=== PATIENT | female | born 1995 | race Caucasian/White ===

== ENCOUNTER → 2020-04-30 01:46 | Outpatient (CLI) | payer OTHER, SELFPAY ==
[2020-05-01 08:28] LABS: SARS-CoV-2 RNA PCR Negative
== END ==
PROVIDERS: PCP Family Medicine; Visit Provider Otolaryngology
DX: Z01.812 Encounter for preprocedural laboratory examination (principal); Z20.822 Contact with and (suspected) exposure to COVID-19
CPT/HCPCS: C9803; U0003; U0005

== ENCOUNTER 2020-04-30 09:32 | Outpatient (CLI) | payer OTHER, SELFPAY ==
--- NOTE | 2020-04-30 09:33 | ECG_ITS ---
Measurements Intervals [place] Rate: 72 P: 62 MA: 153 QRS: 12 QRSD: 71 T: 22 QT: 354 QTc: 388 Interpretive Statements SINUS RHYTHM DELAYED PRECORDIAL R/S TRANSITION LOW QRS VOLTAGE IN PRECORDIAL LEADS BORDERLINE T WAVE ABNORMALITY- INFERIOR LEADS BASELINE ARTIFACT- I, II, III, AVR, AVL,A VF BORDERLINE ECG Electronically Signed On 04-30-2020 10:56:52 CONFERENCE RESERVATIONIST by Horace Molina D.O.
[2020-04-30 10:06] LABS: Anion Gap 6 mmol/L (8-16); Blood Urea Nitrogen 13 mg/dL (7-17); Calcium 8.9 mg/dL (8.4-10.2); Carbon Dioxide 27 mmol/L (22-30); Chloride 104 mmol/L (98-107); Estimated Glomerular Filt Rate > 60; Glucose 229 mg/dL (65-105); Sodium 137 mmol/L (137-145)
== END 2020-04-30 09:33 | disposition home or self-care (01) ==
PROVIDERS: Anesthesiology; PCP Family Medicine; Visit Provider Otolaryngology
DX: E10.9 Type 1 diabetes mellitus without complications (principal); R94.31 Abnormal electrocardiogram [ECG] [EKG]
CPT/HCPCS: 36415; 80048; 93005

== ENCOUNTER 2020-05-03 01:08 | Day surgery (SDC) | payer OTHER, SELFPAY ==
[2020-04-27 15:22] VITALS: BMI 29.2
[2020-05-03] VITALS (7 sets, daily range): BP systolic 106–123; BP diastolic 69–87; PULSE 67–78; RESP 12–20; TEMP 36.1–36.9; O2SAT 97–100
[2020-05-03 07:54] LABS: Glucose Point of Care 267 (65-105)
[2020-05-03] MEDS: ACETAMINOPHEN 500 MG TABLET 1000 MG PO (07:55)
--- NOTE | 2020-05-03 08:13 | WPDANESEPPF ---
Anes - Initial Pre Proc Eval Procedure: Operation Date: 05/03/20 09:00 Proposed Procedures p Left Fat Graft Myringoplasty - Umesh Bernabe MD Date/Time: 05/03/20 08:13 Surgeon: Umesh Bernabe MD Pre Op Diagnosis: perforation left tympanic membrane Patient Data Age: 24 Gender: F Height: 5 ft 1 in Weight: 74.2 kg Allergies Allergy/AdvReac Type Severity Reaction Status Date / Time No Known Allergies Allergy Verified 05/03/20 07:29 Home Medications Medication Instructions Recorded Confirmed Type cetirizine 10 mg tablet 10 mg PO HS 03/13/19 05/03/20 History montelukast 10 mg tablet 10 mg PO DAILY PRN 03/13/19 04/27/20 History levonorgestrel 0.15 mg-ethinyl 1 tablet PO DAILY #84 tablet 10/05/19 05/03/20 Rx estradiol 0.03 mg tablet insulin lispro 100 unit/mL 1 sliding scale dose SUBCUT 02/10/20 04/27/20 Rx subcutaneous solution USEASDIRECTD #90 ml MDD no more than 100 u /d escitalopram oxalate 10 mg tablet 10 mg PO DAILY #30 tablet 02/13/20 05/03/20 Rx Laboratory Tests 05/03/20 07:51 POC Capillary Glucose 267 mg/dl H mg/dl (65-105) Patient hx anesthesia problems: none and other (motion sickness) Family hx anesthesia problems: none PMFSH Past Medical History Medical History Anxiety in acute stress reaction Mild intermittent asthma, uncomplicated MVP (mitral valve prolapse) Type 1 diabetes mellitus without complication Surgical History Surgical History History of tonsillectomy Family History Family History Father Hypertension Patient's father is in good health Sibling Patient's sister is in good health Mother Patient's mother is in good health Social History Social History Smoking status: Never smoker Second hand tobacco smoke exposure: No Alcohol intake: current Drinks per week: 2 Alcohol use details: occassionally Substance use: never Substance use type: does not use Living arrangements: with family Gender identity (if verbalized by the patient): Female Spiritual care concerns: No Anes - Eval Final PreProcedure Day of Procedure 05/03/20 08:13 Patient weight: overweight Heart: regular rate and rhythm Lungs: clear to auscultation Airway: Mallampati scale class II Neurological: alert and oriented Last oral intake: >/= 8 hours ASA classification: III Emergent: no Anesthetic plan: proceed Anesthesia type and monitoring: general LMA and standard monitoring Informed Consent: The patient's anesthetic plan and its attendant risks and benefits were discussed with the patient/family/POA. Questions were solicited and answers provided to the satisfaction of the patient/family/POA.
--- NOTE | 2020-05-03 08:31 | WPDHPUPDATE1 ---
History and Physical Update Update Date/Time: 05/03/20 08:31 History and Physical has been reviewed, including an updated exam of the patient. There are NO changes in the patient's condition. Risks, benefits, and alternatives have been discussed and questions answered. Patient agrees to proceed with procedure. LEFT fat graft myringoplasty. Left side marked
[2020-05-03] MEDS: LACTATED RINGERS 1,000 ML 30 ML IV CONT (08:39)
--- NOTE | 2020-05-03 08:49 | SUR.OPER ---
Patient insulin pump controller in gown pocket
[2020-05-03] MEDS: LIDO 1%/EPINEPHRINE 1:100,000 50 ML VIAL INFILTRATE (08:50)
--- NOTE | 2020-05-03 09:12 | PM.PROC ---
Procedure Note - Detailed Date of procedure: 05/03/20 Pre-op diagnosis: perforation left tympanic membrane Post-op diagnosis: same Procedure performed: Left fat graft myringoplasty Description of procedure: Descrption of procedure: On date of surgery, the patient was identified in the preoperative holding area. Consent signed and verified. The correct ear was marked. The patient was then taken back to the OR and placed under general anesthesia via laryngeal mask. A timeout was performed verifying the correct patient identity, laterality and procedure which they were. The patient was then prepped and draped for LEFT ear surgery. The ear was first examined under binocular microscope. This revealed a 5% central perforation of the tympanic membrane. The edges were freshened using a quintana pick with a postage stamp technique. Next, a small amount of gelfoam packing was secured in the middle ear space to create a bed for the graft. Attention was then directed to the ear lobule. A 1cm incision was made at the inferior aspect of the lobule after 1% lidocaine with 1:100k epinephrine was infiltrated. A piece of fat was harvested for grafting with care to avoid injury to surrounding skin. The harvest site was then closed with 5-0 fast absorbing suture in an interrupted fashion. The fat graft was then placed on the gelfoam, completely covering the perforation. Satisfied with placement, A cotton ball was placed in the ear canal, ointment and bandage placed on the harvest site, and care of the patient was returned to anesthesia who woke the patient up, removed LMA and transferred the patient to the PACU for recovery in stable condition without complication. Umesh Bernabe M.D. Anesthesia: GLMA Surgeon: Umesh Bernabe MD Estimated blood loss (mL): 5 Drains: No Packing: No Pathology: none sent Complications: No immediate complications Condition: stable Disposition: same day Findings: 5% left central perforation
[2020-05-03] MEDS: SCOPOLAMINE 1.5 MG PATCH TRANSDERM (09:15)
--- NOTE | 2020-05-03 09:46 | SUR.PHASEI ---
Patient has an insulin pump and dexcom and will get her BG next door via phone.
== END 2020-05-03 10:43 | disposition home or self-care (01) ==
PROVIDERS: PCP Family Medicine; Visit Provider Otolaryngology
PROC: (CPT 69424; principal; 2020-05-03 09:00)
DX: H72.92 Unspecified perforation of tympanic membrane, left ear (principal); E10.9 Type 1 diabetes mellitus without complications; I34.1 Nonrheumatic mitral (valve) prolapse; J45.20 Mild intermittent asthma, uncomplicated; F41.8 Other specified anxiety disorders; Z79.4 Long term (current) use of insulin
CPT/HCPCS: 69620; 82948; A9270; C9803; J1100; J2250; J2405; J2704; J3010; J7120; U0003; U0005

== ENCOUNTER 2020-07-08 14:05 | Emergency (ER) | payer OTHER, SELFPAY ==
[2020-07-08 14:11] VITALS: BP 130/88; PULSE 86; RESP 16; TEMP 36.6; O2SAT 98
[2020-07-08 14:17] VITALS: BP 130/88; PULSE 86; RESP 16; TEMP 36.6; O2SAT 98
--- NOTE | 2020-07-08 14:39 | ED.GENADULT ---
HPI - General Adult General Chief complaint: Upper Respiratory Infection Stated complaint: Congestion,Sore Throat,Cough Time Seen by Provider: 07/08/20 14:40 Source: patient and RN notes reviewed Mode of arrival: ambulatory Limitations: no limitations History of Present Illness HPI narrative: 24-year-old female presents with complaints of sore throat, congestion, cough, facial pain, and sinus pressure for the past 3 days. Inez reports increasing symptoms causing LT otalgia. Flonase, Breo Ellipta, Singulair, and VapoCOOL without relief. History of Asthma and sinus infection. Cough without chest congestion. No high fevers, drooling, neck or throat swelling. Pain is bilateral. Hurts to swallow. Exacerbation factors consist of PND, coughing, and drinking. Rhinorrhea and nasal congestion. No voice change. No nausea, vomiting, or abdominal pain. Tolerating liquids well. Denies dyspnea, difficulty swallowing, foreign body sensation, and rash. LMP 4 weeks ago and on control. Remains active. The patient reports she have not been diagnosed with COVID-19. The patient reports she recieved 2 Pfizer COVID-19 vaccines, last one in April,. The patient reports she is not waiting for the results of a COVID-19 lab test. The patient reports she do not have chills, weakness, or fatigue. The patient reports she do not have a worsening cough. Denies chest pain. The patient reports she do not have any loss of taste or smell or diarrhea. Denies recent traveling. Denies concerns for COVID-19 or exposures been home with limited outdoor exposure except for essential household needs, work, and return home. At this time, patient is not suspected of having COVID-19 Some parts of this dictation were generated by voice recognition software and may contain typographical and/or grammatical inaccuracies. Related Data Allergies Allergy/AdvReac Type Severity Reaction Status Date / Time cat dander Allergy Severe stuffy Verified 07/08/20 14:12 nose,cough,rash grass pollen Allergy Unknown Itching eye Verified 07/08/20 14:12 house dust Allergy Unknown stuffy Verified 07/08/20 14:12 nose,cough,rash mold Allergy Unknown Itching eye Verified 07/08/20 14:12 feathers AdvReac Itching eye Verified 07/08/20 14:12 Review of Systems Review of Systems: Narrative: CONSTITUTIONAL: Denies fever, chills, sweats. EYES: Denies visual changes, redness, discharge. ENT: Complains of rhinorrhea, LT otalgia, sore throat, congestion. CARDIOVASCULAR: Denies chest pain, palpitations, edema. RESPIRATORY: Denies dyspnea, wheezing. Complains of cough. GASTROINTESTINAL: Denies abdominal pain, nausea, vomiting, diarrhea. GENITOURINARY: Denies dysuria, hematuria, abnormal discharge. SKIN: Denies rash or itching. MUSCULOSKELETAL: Denies acute back pain, joint pain, or myalgia. NEUROLOGIC: Denies numbness or focal weakness. PSYCHIATRIC: Denies anxiety or depression. All systems reviewed & are unremarkable except as noted in HPI and below. [facility] Past Medical History Medical History (Updated 07/09/20 @ 00:01 by Jaleel Alfredo) Anxiety in acute stress reaction Asthma Hammer toe of left foot Mild intermittent asthma, uncomplicated MVP (mitral valve prolapse) Tooth, impacted Type 1 diabetes mellitus without complication Surgical History Surgical History (Updated 05/17/20 @ 14:56 by Eva Summers) History of adenoidectomy History of placement of ear tubes History of tonsillectomy Family History Family History (Updated 05/17/20 @ 14:58 by Eva Summers) Father Hypertension Patient's father is in good health Sibling Patient's sister is in good health Mother Patient's mother is in good health Other Acute anxiety Arthritis Mague's disease Hearing loss Hyperthyroidism Social History Social History (Updated 07/08/20 @ 14:56 by KADIE Barker) Social History: Single Smoking status: Never smoker Tobac
[2020-07-10 19:44] LABS: SARS-CoV-2 RNA PCR Negative
== END 2020-07-08 15:15 | disposition home or self-care (01) ==
PROVIDERS: Emergency Provider Nurse Practitioner Family; PCP Family Medicine
DX: J45.901 Unspecified asthma with (acute) exacerbation (principal); J00 Acute nasopharyngitis [common cold]; J01.90 Acute sinusitis, unspecified; Z20.822 Contact with and (suspected) exposure to COVID-19; I34.1 Nonrheumatic mitral (valve) prolapse; E10.9 Type 1 diabetes mellitus without complications
CPT/HCPCS: 99213; C9803; G0463; U0003; U0005

== ENCOUNTER 2021-04-04 14:00 | Outpatient (RCR) | payer OTHER, SELFPAY | END 2021-04-11 11:56 | disposition home or self-care (01) | LOC: ANHDMC 14:00 | PROVIDERS: PCP Family Medicine; Visit Provider Internal Medicine Endocrinology, Diabetes & Metabolism | DX: E10.649 Type 1 diabetes mellitus with hypoglycemia without coma (principal); Z71.89 Other specified counseling | CPT/HCPCS: 99199; G0108 ==

== ENCOUNTER 2021-05-19 13:49 | Outpatient (RCR) | payer OTHER, SELFPAY | END 2021-08-08 09:16 | disposition home or self-care (01) | LOC: ANHDMC 13:49 | PROVIDERS: PCP Family Medicine; Visit Provider Internal Medicine Endocrinology, Diabetes & Metabolism | DX: E10.649 Type 1 diabetes mellitus with hypoglycemia without coma (principal); Z71.89 Other specified counseling | CPT/HCPCS: G0108 ==

== ENCOUNTER 2023-01-28 13:42 | Emergency (ER) | payer OTHER, SELFPAY ==
[2023-01-28 13:59] VITALS: BP 119/96; PULSE 74; RESP 16; TEMP 36.4; O2SAT 99
[2023-01-28 14:00] VITALS: BP 119/96; PULSE 74; RESP 16; TEMP 36.4; O2SAT 99
--- NOTE | 2023-01-28 14:31 | ED.GENADULT ---
HPI - General Adult General Chief complaint: Nausea/Vomiting/Diarrhea Stated complaint: DIARRHEA/STOMACH PAIN Time Seen by Provider: 01/28/23 14:31 Source: patient, RN notes reviewed and old records reviewed Mode of arrival: ambulatory Limitations: no limitations History of Present Illness HPI narrative: 27 year old female presents to [facility] with complaints of intermittent right upper abdominal pain for the past 2- 3 weeks with diarrhea.Patient does have Type I diabetes and is on insulin pump. Patient reports that she can't relate any increased symptoms to any foods. Patient does report that she has nausea but has not had any vomiting, fevers. Patient reports no acute discomfort at this time, reports pain is intermittent. MD complaint: right upper quadrant pain with nausea and diarrhea Onset (ago): week(s) (2-3 weeks) Location: abdomen Radiation: non-radiation Severity: moderate Severity scale (1-10): 7 Associated symptoms: other (nausea and diarrhea) Related Data Home Medications Medication Instructions Recorded Confirmed fluticasone furoate 100 1 inh inhalation DAILY PRN asthma 01/28/23 01/28/23 mcg-vilanterol 25 mcg/dose inhalation powder (Breo Ellipta) fluticasone propionate 50 1 spray intranasal Q12H PRN 01/28/23 01/28/23 mcg/actuation nasal Congestion spray,suspension norgestimate 0.25 mg-ethinyl 1 tablet PO DAILY 01/28/23 01/28/23 estradiol 35 mcg tablet (Rose) Allergies Allergy/AdvReac Type Severity Reaction Status Date / Time cat dander Allergy Severe stuffy Verified 01/28/23 13:58 nose,cough,rash grass pollen Allergy Unknown Itching eye Verified 01/28/23 13:58 house dust Allergy Unknown stuffy Verified 01/28/23 13:58 nose,cough,rash mold Allergy Unknown Itching eye Verified 01/28/23 13:58 feathers AdvReac Itching eye Verified 01/28/23 13:58 Review of Systems Review of Systems: CONSTITUTIONAL: Denies fever, chills, or sweats. ENT: Denies rhinorrhea, congestion, sore throat, or otalgia. CARDIOVASCULAR: Denies chest pain, palpitations, or edema. RESPIRATORY: Denies cough or dyspnea. GASTROINTESTINAL: Reports intermittent right upper abdominal pain,positive nausea, no vomiting,positive for diarrhea. GENITOURINARY: Denies dysuria or hematuria. SKIN: Denies rash or itching. MUSCULOSKELETAL: Denies back pain, joint pain, or myalgia. NEUROLOGIC: Denies headache, numbness, or weakness. All systems reviewed & are unremarkable except as noted in HPI and below PMFSH Past Medical History Medical History Anxiety in acute stress reaction Asthma Hammer toe of left foot Long-term insulin use Mild intermittent asthma, uncomplicated MVP (mitral valve prolapse) Tooth, impacted Type 1 diabetes mellitus without complication Surgical History Surgical History H/O myringoplasty History of adenoidectomy History of placement of ear tubes History of tonsillectomy Family History Family History Father Hypertension Patient's father is in good health Sibling Patient's sister is in good health Mother Patient's mother is in good health Other Acute anxiety Arthritis Mague's disease Hearing loss Hyperthyroidism Social History Social History Social History: Single Smoking status: Never smoker Second hand tobacco smoke exposure: No Alcohol intake: current Alcohol use details: Once a month. Substance use: never Substance use type: does not use Lack of Transportation: No Lack of Food: Never True Current Housing: I Have Housing Concerned About Future Housing: No Difficulty Paying Gas/Electric Bills: No Difficulty Paying for Meds: No Currently Unemployed: No Education: Bachelor's Degree Difficulty w/ Childcare or Family Care: No
== END 2023-01-28 15:00 | disposition home or self-care (01) ==
PROVIDERS: Emergency Provider Registered Nurse; PCP Family Medicine
DX: R10.11 Right upper quadrant pain (principal); R19.7 Diarrhea, unspecified; J45.909 Unspecified asthma, uncomplicated; E10.9 Type 1 diabetes mellitus without complications
CPT/HCPCS: 81003; 87086; 99213; G0463

== ENCOUNTER 2023-02-12 18:21 | Emergency (ER) | payer OTHER, SELFPAY ==
[2023-02-12 18:39] VITALS: BP 143/93; PULSE 81; RESP 16; TEMP 37.2; O2SAT 98
== END 2023-02-13 | disposition left against medical advice (07) ==
PROVIDERS: PCP Family Medicine
DX: R10.9 Unspecified abdominal pain (principal)
CPT/HCPCS: 99199

== ENCOUNTER 2023-04-09 10:13 | Emergency (ER) | payer OTHER, SELFPAY ==
[2023-04-09 10:33] VITALS: BP 118/90; PULSE 94; RESP 16; TEMP 36.3; O2SAT 96
--- NOTE | 2023-04-09 11:08 | ED.URI ---
HPI - URI/Sore Throat General Chief Complaint: Upper Respiratory Infection Stated Complaint: Chest pain;Cough Time Seen by Provider: 04/09/23 10:35 Source: patient Mode of arrival: ambulatory Limitations: no limitations History of Present Illness HPI Narrative: Inez is a 27-year-old female patient presenting to the clinic today with complaints of cough, congestion, chest discomfort with cough, bringing up some green/yellow phlegm. Symptoms have been going on for 5 days. She denies any known fever or chills. Does have a history of asthma. MD elicited complaint: cough and nasal congestion Related Data Home Medications Medication Instructions Recorded Confirmed fluticasone furoate 100 1 inh inhalation DAILY PRN asthma 01/28/23 04/09/23 mcg-vilanterol 25 mcg/dose inhalation powder (Breo Ellipta) fluticasone propionate 50 1 spray intranasal Q12H PRN 01/28/23 04/09/23 mcg/actuation nasal Congestion spray,suspension norgestimate 0.25 mg-ethinyl 1 tablet PO DAILY 01/28/23 04/09/23 estradiol 35 mcg tablet (Rose) spironolactone 100 mg tablet 100 mg PO DAILY 04/09/23 04/09/23 Allergies Allergy/AdvReac Type Severity Reaction Status Date / Time cat dander Allergy Severe stuffy Verified 04/09/23 10:26 nose,cough,rash grass pollen Allergy Unknown Itching eye Verified 04/09/23 10:26 house dust Allergy Unknown stuffy Verified 04/09/23 10:26 nose,cough,rash mold Allergy Unknown Itching eye Verified 04/09/23 10:26 feathers AdvReac Itching eye Verified 04/09/23 10:26 Review of Systems Review of Systems: Pertinent positives per HPI. Patient denies any fever, chills, rash, headache, visual changes, dizziness, shortness of breath, chest pain, palpitations, nausea, vomiting, diarrhea, constipation, abdominal pain, or any urinary issues. [facility] Past Medical History Medical History Anxiety in acute stress reaction Asthma Hammer toe of left foot Long-term insulin use Mild intermittent asthma, uncomplicated MVP (mitral valve prolapse) Tooth, impacted Type 1 diabetes mellitus without complication Surgical History Surgical History H/O myringoplasty History of adenoidectomy History of placement of ear tubes History of tonsillectomy Family History Family History Father Hypertension Patient's father is in good health Sibling Patient's sister is in good health Mother Patient's mother is in good health Other Acute anxiety Arthritis Mague's disease Hearing loss Hyperthyroidism Social History Social History Social History: Single Smoking status: Never smoker Second hand tobacco smoke exposure: No Alcohol intake: current Alcohol use details: Once a month. Substance use: never Substance use type: does not use Lack of Transportation: No Lack of Food: Never True Current Housing: I Have Housing Concerned About Future Housing: No Difficulty Paying Gas/Electric Bills: No Difficulty Paying for Meds: No Currently Unemployed: No Education: Bachelor's Degree Difficulty w/ Childcare or Family Care: No Living arrangements: with family Occupation/Education: occupation Gender identity (if verbalized by the patient): Female Sexual Orientation (if Verbalized by the Patient): Straight or Heterosexual Spiritual care concerns: No Comments At the time of my signature, I reviewed and agree with the nursing past medical, surgical, social, and family history. There is no relevant family history pertinent to the patient complaint. Exam Narrative: General: Well-developed, obese, in no apparent distress Head: Normocephalic, atraumatic Eyes: Pupils equally round and reactive to light bilaterally, EOM intact, sclera and conjunctive c
== END 2023-04-09 11:15 | disposition home or self-care (01) ==
PROVIDERS: Emergency Provider Nurse Practitioner Family
DX: J45.901 Unspecified asthma with (acute) exacerbation (principal); J06.9 Acute upper respiratory infection, unspecified; E10.9 Type 1 diabetes mellitus without complications; Z79.4 Long term (current) use of insulin
CPT/HCPCS: 99213; G0463